=== PATIENT | male | born 1995 ===

== ENCOUNTER → 2019-02-04 | Outpatient (REF) | LOC: ZLAB.WCH 16:53 | DX: Z01.89 Encounter for other specified special examinations (principal) ==

== ENCOUNTER → 2019-02-27 | Outpatient (REF) ==
[2019-02-27 17:32] LABS: THYROID STIMULATING HORMONE 5.69 uIU/mL (0.465-4.680)
== END ==
LOC: ZLAB.WCH 16:24
PROVIDERS: Family Medicine
DX: Z01.89 Encounter for other specified special examinations (principal)